=== PATIENT | female | born 1955 | race Caucasian/White ===

== ENCOUNTER 2020-01-24 19:25 | Observation (INO) | payer MEDICARE ==
[2020-01-24] MEDS ORDERED: Sodium Chloride 0.9% 1000 ML 1,000 ML IV STA (19:55)
[2020-01-24] MEDS ORDERED: Hydromorphone 1 mg/ml Ampule IV ONE (19:55)
[2020-01-24] MEDS ORDERED: Zofran 4 MG/2 ML VIAL IV ONE (19:55)
--- NOTE | 2020-01-24 19:55 | ERPHSYRPT ---
- History of Present Illness Time Seen by Provider: 01/24/20 19:51 Source: patient, family Exam Limitations: no limitations Physician History: pt is lupus pt on Tx with fever last week resolving - no respiratory symptoms but now has vomiting - no abd pain - no neuro symptoms Timing/Duration: day(s) Fever Severity: gone Fever Therapy [employer]: none Associated Symptoms: abdominal pain, No cough, No diaphoresis, No shortness of breath Allergies/Adverse Reactions: No Known Drug Allergies Allergy (Verified 01/24/20 20:00) Home Medications: Amlodipine Besylate 2.5 mg PO DAILY 01/24/20 [History] Calcium Carbonate [Calcium] 600 mg PO DAILY 01/24/20 [History] Hydroxychloroquine Sulfate 200 mg PO DAILY 01/24/20 [History] Pravastatin Sodium 10 mg PO DAILY 01/24/20 [History] Sildenafil Citrate [Revatio] 20 mg PO TID 01/24/20 [History] Vitamin E 400 Units [Vitamin E 400 UNIT SOFTGEL] 400 unit PO DAILY [History] mycophenolate mofetiL [Mycophenolate Mofetil] 500 mg PO BID 01/24/20 [History] - Review of Systems Constitutional: Fever, No Chills Eyes: No Symptoms Ears, Nose, & Throat: No Symptoms Respiratory: No Cough, No Dyspnea Cardiac: No Chest Pain, No Edema, No Syncope Abdominal/Gastrointestinal: Nausea, Vomiting, No Abdominal Pain, No Diarrhea Genitourinary Symptoms: No Dysuria Musculoskeletal: No Back Pain, No Neck Pain Skin: No Rash Neurological: No Dizziness, No Focal Weakness, No Sensory Changes Psychological: No Symptoms Endocrine: No Symptoms Hematologic/Lymphatic: No Symptoms Immunological/Allergic: No Symptoms All Other Systems: Reviewed and Negative - Past Medical History Pertinent Past Medical History: Yes - Nursing Vital Signs Nursing Vital Signs: Initial Vital Signs Temperature 98.4 F 01/24/20 19:39 Pulse Rate 82 01/24/20 19:39 Respiratory Rate 16 01/24/20 19:39 Blood Pressure 168/86 01/24/20 19:39 O2 Sat by Pulse Oximetry 100 01/24/20 19:39 Pain Scale Pain Intensity 10 - Physical Exam General Appearance: no apparent distress, alert Eye Exam: PERRL/EOMI ENT Exam: normal ENT inspection, No pharyngeal erythema, No tonsillar exudate Neck Exam: supple, full range of motion, No meningismus Respiratory Exam: normal breath sounds, lungs clear, no respiratory distress Cardiovascular/Chest Exam: normal heart sounds, regular rate/rhythm, No murmur, No edema Gastrointestinal/Abdominal Exam: soft, no distention, guarding, tenderness ( general mid to upper) Pelvic Exam: deferred Rectal Exam: deferred Extremity Exam: non-tender, normal range of motion, normal inspection, normal capillary refill Neurologic Exam: alert, oriented x 3, cooperative, 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, normal mood/affect, sensation nml, No motor deficits Skin Exam: normal color, warm, dry, No rash - Course Nursing assessment & vital signs reviewed: Yes EKG Interpreted by Me: Sinus Rhythm, NORMAL QRS, Non-specific ST Changes - CT Exams Abdomen/Pelvis CT Interpretation: Tele-radiologist Report, DJD (granulomas, PAD, cecal stranding, ), No appendicitis Ordered Tests: Active Orders 24 hr Category Date Time Status EKG-ER Only STAT Care 01/24/20 19:55 Active IV Insertion STAT Care 01/24/20 19:55 Active NPO (ED) STAT Care 01/24/20 19:55 Active ABDOMEN AND PELVIS W/0 CONTRAS [CT] Stat Exams 01/24/20 20:31 Taken AMYLASE Stat Lab 01/24/20 21:11 Completed CBC W DIFF Stat Lab 01/24/20 21:11 Completed CMP Stat Lab 01/24/20 21:11 Completed LIPASE Stat Lab 01/24/20 21:11 Completed Lactic Acid Stat Lab 01/24/20 20:46 Completed PROTIME WITH INR Stat Lab 01/24/20 21:11 Completed TROPONIN Q3H Lab 01/24/20 21:11 Completed TROPONIN Q3H Lab 01/24/20 23:00 Ordered TROPONIN Q3H Lab 01/25/20 02:00 Ordered TROPONIN Q3H Lab 01/25/20 05:00 Ordered TROPONIN Q3H Lab 01/25/20 08:00 Ordered UA W/RFX UR CULTURE Stat Lab 01/24/20 19:56 Uncollected Medication Summary Discontinued Medications Generic Name Dose Route Start Last Admin Trade Name Freq PRN Reason Stop Dose Admin Hydromorphone HCl 0.5 mg 01/24/20 19:55 01/24/20 20:48 Hydromorphone 1 Mg/Ml Ampule IV 01/24/20 19:56 0.5 mg STAT ONE Administration Hydromorphone HCl Confirm 01/24/20 20:20 Hydromorphone 1 Mg/Ml Ampule Administered 01/24/20 20:21 Dose 1 mg .ROUTE .STK-MED ONE Sodium Chloride 1,000 mls @ 999 mls/hr 01/24/20 19:55 01/24/20 20:48 Sodium Chloride 0.9% 1000 Ml IV 01/24/20 20:55 999 mls/hr .Q1H1M STA Administration Sodium Chloride Confirm 01/24/20 20:20 Sodium Chloride 0.9% 1000 Ml Administered 01/24/20 20:21 Dose 1,000 mls @ ud .ROUTE .STK-MED ONE Lidocaine/Prilocaine 2.5 gm 01/24/20 20:08 01/24/20 20:18 Emla Cream 5 Gm TP 01/24/20 20:09 2.5 gm STAT ONE Administration Lidocaine/Prilocaine Confirm 01/24/20 20:09 Emla Cream 5 Gm Administered 01/24/20 20:10 Dose 5 gm TP .STK-MED ONE Ondansetron HCl 4 mg 01/24/20 19:55 01/24/20 20:49 Zofran 4 Mg/2 Ml Vial IV 01/24/20 19:56 4 mg STAT ONE Administration Ondansetron HCl Confirm 01/24/20 20:20 Zofran 4 Mg/2 Ml Vial Administered 01/24/20 20:21 Dose 4 mg .ROUTE .STK-MED ONE Lab/Rad Data: Laboratory Result Diagrams 01/24/20 21:11 01/24/20 21:11 Laboratory Results 01/24/20 01/24/20 01/24/20 Range/Units 21:11 21:11 21:11 WBC (4.0-10.5) K/mm3 RBC (4.1-5.4) M/mm3 Hgb (12.0-16.0) gm/dl Hct (35-47) % MCV (78-100) fl MCH (26-32) pg MCHC (32-36) g/dl RDW (11.5-14.0) % Plt Count (150-450) K/mm3 MPV (7.5-11.0) fl Gran % (36.0-66.0) % Eos # (Auto) (0-0.5) Absolute Lymphs (auto) (1.0-4.6) Absolute Monos (auto) (0.0-1.3) Lymphocytes % (24.0-44.0) % Monocytes % (0.0-12.0) % Eosinophils % (0.00-5.0) % Basophils % (0.0-0.4) % Absolute Granulocytes (1.4-6.9) Basophils # (0-0.4) PT 12.7 H (9.95-12.35) SECONDS INR 1.12 (0.8-3.0) Sodium 138 (137-145) mmol/L Potassium 3.8 (3.5-5.1) mmol/L Chloride 96 L (98-107) mmol/L Carbon Dioxide 36 H (22-30) mmol/L Anion Gap 9.7 (5-15) MEQ/L BUN 11 (7-17) mg/dL Creatinine 0.63 (0.52-1.04) mg/dL Estimated GFR > 60.0 ML/MIN Glucose 109 H (74-106) mg/dL Lactic Acid (0.4-2.0) Calcium 10.0 (8.4-10.2) mg/dL Total Bilirubin 0.60 (0.2-1.3) mg/dL AST 75 H (14-36) U/L ALT 43 H (0-35) U/L Alkaline Phosphatase 90 (38-126) U/L Troponin I < 0.012 (0.000-0.034) ng/mL Serum Total Protein 9.3 H (6.3-8.2) g/dL Albumin 4.2 (3.5-5.0) g/dL Amylase 74 (30-110) U/L Lipase 266 (23-300) U/L Influenza Type A Ag (NEGATIVE) Influenza Type B Ag (NEGATIVE) RSV (PCR) (Negative) 01/24/20 01/24/20 01/24/20 Range/Units 21:11 20:54 20:46 WBC 2.4 L (4.0-10.5) K/mm3 RBC 4.27 (4.1-5.4) M/mm3 Hgb 12.1 (12.0-16.0) gm/dl Hct 38.7 (35-47) % MCV 90.6 (78-100) fl MCH 28.3 (26-32) pg MCHC 31.3 L (32-36) g/dl RDW 14.0 (11.5-14.0) % Plt Count 124 L (150-450) K/mm3 MPV 12.0 H (7.5-11.0) fl Gran % 61.9 (36.0-66.0) % Eos # (Auto) 0.05 (0-0.5) Absolute Lymphs (auto) 0.45 L (1.0-4.6) Absolute Monos (auto) 0.40 (0.0-1.3) Lymphocytes % 19.1 L (24.0-44.0) % Monocytes % 16.9 H (0.0-12.0) % Eosinophils % 2.1 (0.00-5.0) % Basophils % 0.0 (0.0-0.4) % Absolute Granulocytes 1.46 (1.4-6.9) Basophils # 0 (0-0.4) PT (9.95-12.35) SECONDS INR (0.8-3.0) Sodium (137-145) mmol/L Potassium (3.5-5.1) mmol/L Chloride (98-107) mmol/L Carbon Dioxide (22-30) mmol/L Anion Gap (5-15) MEQ/L BUN (7-17) mg/dL Creatinine (0.52-1.04) mg/dL Estimated GFR ML/MIN Glucose (74-106) mg/dL Lactic Acid 1.0 (0.4-2.0) Calcium (8.4-10.2) mg/dL Total Bilirubin (0.2-1.3) mg/dL AST (14-36) U/L ALT (0-35) U/L Alkaline Phosphatase (38-126) U/L Troponin I (0.000-0.034) ng/mL Serum Total Protein (6.3-8.2) g/dL Albumin (3.5-5.0) g/dL Amylase (30-110) U/L Lipase (23-300) U/L Influenza Type A Ag NEGATIVE (NEGATIVE) Influenza Type B Ag NEGATIVE (NEGATIVE) RSV (PCR) NEGATIVE (Negative) - Progress Progress: improved, re-examined Progress Note: 01/24/20 20:16 discussed fever but lack of resp symptoms with pt making COVID 19 less likely but that in her immune state any resp symptom or cough should prompt reconsideration of testing and she is aware , agrees to let of know if any symptoms and to reconsider testing at such time if these occur. 01/24/20 22:58 discussed with pt , family and Dr. Patel and all agree best to place in on obs and rehydrate Discussed with : Juli Will see patient in: hospital (observation) Counseled pt/family regarding: lab results, diagnosis, need for follow-up, rad results - Departure Departure Disposition: Observation Clinical Impression: Intractable vomiting with nausea, Lupus (systemic lupus erythematosus) Condition: Good Critical Care Time: No Referrals: NOY PATEL MD [Primary Care Provider] -
[2020-01-24] MEDS ORDERED: EMLA Cream 5 GM TP ONE ×2 (20:08→20:09)
[2020-01-24] MEDS ORDERED: Hydromorphone 1 mg/ml Ampule ONE (20:20)
[2020-01-24] MEDS ORDERED: Sodium Chloride 0.9% 1000 ML 1,000 ML ONE (20:20)
[2020-01-24] MEDS ORDERED: Zofran 4 MG/2 ML VIAL ONE (20:20)
[2020-01-24 21:16] LABS: Absolute Neutrophil Ct (ANC) 1.46 (1.4-6.9); Basophil (Absolute #) 0 (0-0.4); Eosinophil % 2.1 % (0.00-5.0); Eosinophil (Absolute #) 0.05 (0-0.5); Hematocrit 38.7 % (35-47); Hemoglobin 12.1 gm/dl (12.0-16.0); Lymphocyte (Absolute #) 0.45 (1.0-4.6); Lymphocytes % 19.1 % (24.0-44.0); Mean Cell Volume 90.6 fl (78-100); Mean Corpuscular Hemoglobin 28.3 pg (26-32); Mean Corpuscular Hgb Concent. 31.3 g/dl (32-36); Monocytes % 16.9 % (0.0-12.0); Neutrophil % 61.9 % (36.0-66.0); Platelet Count 124 K/mm3 (150-450); Red Blood Count 4.27 M/mm3 (4.1-5.4); White Blood Count 2.4 K/mm3 (4.0-10.5)
[2020-01-24 21:27] LABS: INR 1.12 (0.8-3.0); PROTIME 12.7 SECONDS (9.95-12.35)
[2020-01-24 21:30] LABS: INFLUENZA A NEGATIVE (NEGATIVE); INFLUENZA B NEGATIVE (NEGATIVE); RESPIRATORY SYNCTIAL VIRUS NEGATIVE (Negative)
[2020-01-24 21:31] LABS: ALBUMIN 4.2 g/dL (3.5-5.0); ALKALINE PHOSPHATASE 90 U/L (38-126); AMYLASE 74 U/L (30-110); ANION GAP 9.7 MEQ/L (5-15); BLOOD UREA NITROGEN 11 mg/dL (7-17); CHLORIDE 96 mmol/L (98-107); Carbon Dioxide 36 mmol/L (22-30); Creatinine 1 0.63 mg/dL (0.52-1.04); Glucose 109 mg/dL (74-106); LIPASE 266 U/L (23-300); Potassium 3.8 mmol/L (3.5-5.1); SGOT/AST 75 U/L (14-36); SGPT/ALT 43 U/L (0-35); SODIUM 138 mmol/L (137-145); Total Protein 9.3 g/dL (6.3-8.2)
[2020-01-24 23:37] LABS: Appearance CLEAR (CLEAR); Bilirubin NEGATIVE (NEGATIVE); Blood NEGATIVE Ery/ul (0-5); Glucose NEGATIVE (NEGATIVE); Ketones SMALL (NEGATIVE); Leukocyte Esterase NEGATIVE (NEGATIVE); Mucus SLIGHT /HPF (NEGATIVE); Nitrite NEGATIVE (NEGATIVE); Protein,Urine Dip NEGATIVE (Negative); RBC 0-2 /HPF (0-2); Specific Gravity 1.009 (1.005-1.025); Urobilinogen NEGATIVE mg/dL (0-1); WBC 0-2 /HPF (0-5)
[2020-01-25] MEDS ORDERED: Zofran 4 MG/2 ML VIAL IV PRN (00:56)
[2020-01-25] MEDS ORDERED: HUMALOG SQ PRN (00:56)
[2020-01-25] MEDS ORDERED: TYLENOL 325 MG PO PRN (00:56)
[2020-01-25] MEDS ORDERED: Phenergan 25 MG INJ IM PRN (00:56)
[2020-01-25] MEDS: Sodium Chloride 0.9% 1000 ML 1,000 ML IV SCH ×4 (01:16→21:31)
[2020-01-25 02:21] LABS: Slide Review 1 YES
[2020-01-25] MEDS: DILAUDID 2 MG INJECTION IV PRN ×3 (03:06→21:32)
[2020-01-25 05:09] LABS: Hematocrit 34.3 % (35-47); Hemoglobin 10.5 gm/dl (12.0-16.0); Mean Corpuscular Hemoglobin 28.2 pg (26-32); Mean Corpuscular Hgb Concent. 30.6 g/dl (32-36); Mean Platelet Volume 11.4 fl (7.5-11.0); Platelet Count 99 K/mm3 (150-450); Red Blood Count 3.73 M/mm3 (4.1-5.4); Red Cell Distribution Width 13.9 % (11.5-14.0)
[2020-01-25 05:20] LABS: White Blood Count 1.6 K/mm3 (4.0-10.5)
[2020-01-25 05:21] LABS: ALBUMIN 3.5 g/dL (3.5-5.0); ALKALINE PHOSPHATASE 73 U/L (38-126); ANION GAP 7.5 MEQ/L (5-15); BLOOD UREA NITROGEN 9 mg/dL (7-17); CHLORIDE 102 mmol/L (98-107); Calcium 9.2 mg/dL (8.4-10.2); Carbon Dioxide 32 mmol/L (22-30); Creatinine 1 0.64 mg/dL (0.52-1.04); Glucose 91 mg/dL (74-106); Potassium 3.9 mmol/L (3.5-5.1); SGOT/AST 69 U/L (14-36); SGPT/ALT 40 U/L (0-35); SODIUM 138 mmol/L (137-145); Total Protein 7.9 g/dL (6.3-8.2)
--- NOTE | 2020-01-25 08:19 | XRAY ---
Indication: Abdomen pain, nausea, and vomiting. History of lupus. Multiple contiguous axial images obtained through the abdomen and pelvis without contrast as ordered. Comparison: CT abdomen September 14, 2017. Lung bases demonstrates atelectasis/scarring. No infiltrate or effusion. Heart is not enlarged. Noncontrasted stomach and bowel loops appear nonobstructed. There is mild diffuse scattered colonic debris throughout. Previous reported appendectomy, hysterectomy, and cholecystectomy. Liver again appears small with nodular margins favoring cirrhosis. No free fluid/air. Stable 15 cm splenomegaly and hepatic/splenic calcified granulomas. Remaining liver, pancreas, spleen, adrenal glands, kidneys, ureters, and bladder appear unremarkable for noncontrast exam. Stable moderate aortoiliac calcifications without AAA. Osseous structures again demonstrates mild degenerative changes throughout the spine and both hips. No ventral or inguinal hernias. Impression: 1. Mild diffuse fecal stasis without obstruction. 2. Stable small liver with nodular margins again favoring cirrhosis. No ascites. 3. Stable hepatomegaly, chronic bony findings, and evidence for old granulomatous disease. 3. Remaining CT abdomen/pelvis without contrast exam is negative. Comment: Preliminary interpretation was made by [facility]. No critical discrepancy.
[2020-01-25 08:42] LABS: Eosinophil 1 % (0.00-3.0); Lymphocytes 32 % (24-44); Monocyte 12 % (0.0-12.0); Neutrophils 55 % (36.0-66.0); Platelet Estimate DECREASED (NORMAL); Total Cells Counted 100
--- NOTE | 2020-01-25 08:53 | PCM.HP ---
History of Present Illness - Chief Complaint Chief Complaint: intractable vomiting/weakness for 2-3 days History of Present Illness: is a 64 year old female to the emergency room With complaining of intractable vomiting for last 2-3 days associated with fever. Patient has a history of lupus. - Review of Systems Constitutional: Fever, Chills Eyes: No Symptoms Ears, Nose, & Throat: No Symptoms Respiratory: No Cough, No Short Of Breath Cardiac: No Chest Pain, No Edema, No Syncope Abdominal/Gastrointestinal: Nausea, Vomiting, No Abdominal Pain, No Diarrhea Genitourinary Symptoms: No Dysuria Musculoskeletal: No Back Pain, No Neck Pain Skin: No Rash Neurological: No Dizziness, No Focal Weakness, No Sensory Changes Psychological: No Symptoms Endocrine: No Symptoms Hematologic/Lymphatic: No Symptoms Immunological/Allergic: No Symptoms Medications & Allergies Home Medications: Home Medication List Amlodipine Besylate 2.5 mg PO DAILY 01/24/20 [History Confirmed 01/24/20] Calcium Carbonate [Calcium] 600 mg PO DAILY 01/24/20 [History Confirmed 01/24/20 ] Hydroxychloroquine Sulfate 200 mg PO DAILY 01/24/20 [History Confirmed 01/24/20] Pravastatin Sodium 10 mg PO DAILY 01/24/20 [History Confirmed 01/24/20] Sildenafil Citrate [Revatio] 20 mg PO TID 01/24/20 [History Confirmed 01/24/20] Vitamin E 400 Units [Vitamin E 400 UNIT SOFTGEL] 400 unit PO DAILY [History Confirmed 01/24/20] mycophenolate mofetiL [Mycophenolate Mofetil] 500 mg PO BID 01/24/20 [History Confirmed 01/24/20] Cholecalciferol (Vitamin D3) [Vitamin D3] 50 mcg PO DAILY 01/25/20 [History Confirmed 01/25/20] Mecobalamin [B12 Active] 1,000 mcg PO DAILY 01/25/20 [History Confirmed 01/25/20 ] Milk Thistle 175 mg PO DAILY 01/25/20 [History Confirmed 01/25/20] Allergies/Adverse Reactions: Allergies Allergy/AdvReac Type Severity Reaction Status Date / Time No Known Drug Allergies Allergy Verified 01/24/20 20:00 - Past Medical History Past Medical History: Yes Neurological History: No Pertinent History ENT History: No Pertinent History Cardiac History: Other Respiratory History: No Pertinent History Endocrine Medical History: No Pertinent History, Liver Disease Musculoskelatal History: Rheumatoid Arthritis GI Medical History: Other History: No Pertinent History Pyscho-Social History: No Pertinent History Reproductive Disorders: Uterine Cancer Comment: lupus, lupus cerebritis, reynauds, scleroderma, pulm htn, liver disease with cirrhosis, hep c- treated. pt states blockages in esophagus- states she is going on february 17 to have esophatgus stretched again. hx nonhodgkins lymphoma, ewings sarcoma, cervical ca, stomach ca per pt - Female History Are you now?: No - Past Surgical History Past Surgical History: Yes Neuro Surgical History: No Pertinent History Cardiac History: No Pertinent History Respiratory Surgery: No Pertinent History GI Surgical History: Cholecystectomy Genitourinary Surgical Hx: No Pertinent History Musculskeletal Surgical Hx: Joint Replacement Female Surgical History: Hysterectomy Other Surgical History: rt knee replacement, finger amp rt hand x2, port placement - Social History Smoking Status: Former smoker Exposure to second hand smoke: No Alcohol: None Drug Use: none - Physical Exam Vital Signs: Vital Signs - 24 hr Temp Pulse Resp BP Pulse Ox 01/25/20 07:33 97.9 F 67 18 142/70 98 01/25/20 06:40 100 01/25/20 03:35 97.7 F 69 17 155/70 99 01/25/20 01:14 97.9 F 53 L 18 150/66 98 01/25/20 00:50 64 18 147/98 99 01/25/20 00:02 55 L 18 154/98 99 01/24/20 23:08 76 18 171/83 99 01/24/20 22:02 67 15 162/92 96 01/24/20 21:12 62 10 L 148/68 93 L 01/24/20 20:48 63 147/77 100 01/24/20 19:39 98.4 F 82 16 168/86 100 General Appearance: no apparent distress, alert Neurologic Exam: alert, oriented x 3, cooperative, normal mood/affect, nml cerebellar function, nml station & gait, sensation nml, No motor deficits Eye Exam: PERRL/EOMI, eyes nml inspection Ears, Nose, Throat Exam: normal ENT inspection, TMs normal, pharynx normal, moist mucous membranes Neck Exam: normal inspection, non-tender, supple, full range of motion Respiratory Exam: normal breath sounds, lungs clear, No respiratory distress Cardiovascular Exam: regular rate/rhythm, normal heart sounds, normal peripheral pulses Gastrointestinal/Abdomen Exam: soft, normal bowel sounds, No tenderness, No mass Back Exam: normal inspection, normal range of motion, No CVA tenderness, No vertebral tenderness Extremity Exam: normal inspection, normal range of motion, pelvis stable Skin Exam: normal color, warm, dry, No rash Lymphatic Exam: No adenopathy Results - Labs Lab/Micro Results: Lab Results-Last 24 Hours 01/24/20 01/24/20 01/24/20 Range/Units 20:46 20:54 21:11 WBC 2.4 L (4.0-10.5) K/mm3 RBC 4.27 (4.1-5.4) M/mm3 Hgb 12.1 (12.0-16.0) gm/dl Hct 38.7 (35-47) % MCV 90.6 (78-100) fl MCH 28.3 (26-32) pg MCHC 31.3 L (32-36) g/dl RDW 14.0 (11.5-14.0) % Plt Count 124 L (150-450) K/mm3 MPV 12.0 H (7.5-11.0) fl Gran % 61.9 (36.0-66.0) % Eos # (Auto) 0.05 (0-0.5) Absolute Lymphs (auto) 0.45 L (1.0-4.6) Absolute Monos (auto) 0.40 (0.0-1.3) Lymphocytes % 19.1 L (24.0-44.0) % Monocytes % 16.9 H (0.0-12.0) % Eosinophils % 2.1 (0.00-5.0) % Basophils % 0.0 (0.0-0.4) % Absolute Granulocytes 1.46 (1.4-6.9) Segmented Neutrophils (36.0-66.0) % Lymphocytes (Manual) (24-44) % Monocytes (Manual) (0.0-12.0) % Eosinophils (Manual) (0.00-3.0) % Basophils # 0 (0-0.4) Platelet Estimate (NORMAL) RBC Morphology PT (9.95-12.35) SECONDS INR (0.8-3.0) Sodium (137-145) mmol/L Potassium (3.5-5.1) mmol/L Chloride (98-107) mmol/L Carbon Dioxide (22-30) mmol/L Anion Gap (5-15) MEQ/L BUN (7-17) mg/dL Creatinine (0.52-1.04) mg/dL Estimated GFR ML/MIN Glucose (74-106) mg/dL Lactic Acid 1.0 (0.4-2.0) Calcium (8.4-10.2) mg/dL Total Bilirubin (0.2-1.3) mg/dL AST (14-36) U/L ALT (0-35) U/L Alkaline Phosphatase (38-126) U/L Troponin I (0.000-0.034) ng/mL Serum Total Protein (6.3-8.2) g/dL Albumin (3.5-5.0) g/dL Amylase (30-110) U/L Lipase (23-300) U/L Urine Color (YELLOW) Urine Appearance (CLEAR) Urine pH (5-6) Ur Specific Robins (1.005-1.025) Urine Protein (Negative) Urine Ketones (NEGATIVE) Urine Blood (0-5) Bj/ul Urine Nitrite (NEGATIVE) Urine Bilirubin (NEGATIVE) Urine Urobilinogen (0-1) mg/dL Ur Leukocyte Esterase (NEGATIVE) Urine WBC (Auto) (0-5) /HPF Urine RBC (Auto) (0-2) /HPF U Epithel Cells (Auto) (FEW) /HPF Urine Bacteria (Auto) (NEGATIVE) /HPF Urine Mucus (Auto) (NEGATIVE) /HPF Urine Culture Reflexed (NO) Urine Glucose (NEGATIVE) mg/dL Influenza Type A Ag NEGATIVE (NEGATIVE) Influenza Type B Ag NEGATIVE (NEGATIVE) RSV (PCR) NEGATIVE (Negative) Slides for Path Review YES 01/24/20 01/24/20 01/24/20 Range/Units 21:11 21:11 21:11 WBC (4.0-10.5) K/mm3 RBC (4.1-5.4) M/mm3 Hgb (12.0-16.0) gm/dl Hct (35-47) % MCV (78-100) fl MCH (26-32) pg MCHC (32-36) g/dl RDW (11.5-14.0) % Plt Count (150-450) K/mm3 MPV (7.5-11.0) fl Gran % (36.0-66.0) % Eos # (Auto) (0-0.5) Absolute Lymphs (auto) (1.0-4.6) Absolute Monos (auto) (0.0-1.3) Lymphocytes % (24.0-44.0) % Monocytes % (0.0-12.0) % Eosinophils % (0.00-5.0) % Basophils % (0.0-0.4) % Absolute Granulocytes (1.4-6.9) Segmented Neutrophils (36.0-66.0) % Lymphocytes (Manual) (24-44) % Monocytes (Manual) (0.0-12.0) % Eosinophils (Manual) (0.00-3.0) % Basophils # (0-0.4) Platelet Estimate (NORMAL) RBC Morphology PT 12.7 H (9.95-12.35) SECONDS INR 1.12 (0.8-3.0) Sodium 138 (137-145) mmol/L Potassium 3.8 (3.5-5.1) mmol/L Chloride 96 L (98-107) mmol/L Carbon Dioxide 36 H (22-30) mmol/L Anion Gap 9.7 (5-15) MEQ/L BUN 11 (7-17) mg/dL Creatinine 0.63 (0.52-1.04) mg/dL Estimated GFR > 60.0 ML/MIN Glucose 109 H (74-106) mg/dL Lactic Acid (0.4-2.0) Calcium 10.0 (8.4-10.2) mg/dL Total Bilirubin 0.60 (0.2-1.3) mg/dL AST 75 H (14-36) U/L ALT 43 H (0-35) U/L Alkaline Phosphatase 90 (38-126) U/L Troponin I < 0.012 (0.000-0.034) ng/mL Serum Total Protein 9.3 H (6.3-8.2) g/dL Albumin 4.2 (3.5-5.0) g/dL Amylase 74 (30-110) U/L Lipase 266 (23-300) U/L Urine Color (YELLOW) Urine Appearance (CLEAR) Urine pH (5-6) Ur Specific Rob[place] (1.005-1.025) Urine Protein (Negative) Urine Ketones (NEGATIVE) Urine Blood (0-5) Bj/ul Urine Nitrite (NEGATIVE) Urine Bilirubin (NEGATIVE) Urine Urobilinogen (0-1) mg/dL Ur Leukocyte Esterase (NEGATIVE) Urine WBC (Auto) (0-5) /HPF Urine RBC (Auto) (0-2) /HPF U Epithel Cells (Auto) (FEW) /HPF Urine Bacteria (Auto) (NEGATIVE) /HPF Urine Mucus (Auto) (NEGATIVE) /HPF Urine Culture Reflexed (NO) Urine Glucose (NEGATIVE) mg/dL Influenza Type A Ag (NEGATIVE) Influenza Type B Ag (NEGATIVE) RSV (PCR) (Negative) Slides for Path Review 01/24/20 01/24/20 01/25/20 Range/Units 23:31 23:34 02:08 WBC (4.0-10.5) K/mm3 RBC (4.1-5.4) M/mm3 Hgb (12.0-16.0) gm/dl Hct (35-47) % MCV (78-100) fl MCH (26-32) pg MCHC (32-36) g/dl RDW (11.5-14.0) % Plt Count (150-450) K/mm3 MPV (7.5-11.0) fl Gran % (36.0-66.0) % Eos # (Auto) (0-0.5) Absolute Lymphs (auto) (1.0-4.6) Absolute Monos (auto) (0.0-1.3) Lymphocytes % (24.0-44.0) % Monocytes % (0.0-12.0) % Eosinophils % (0.00-5.0) % Basophils % (0.0-0.4) % Absolute Granulocytes (1.4-6.9) Segmented Neutrophils (36.0-66.0) % Lymphocytes (Manual) (24-44) % Monocytes (Manual) (0.0-12.0) % Eosinophils (Manual) (0.00-3.0) % Basophils # (0-0.4) Platelet Estimate (NORMAL) RBC Morphology PT (9.95-12.35) SECONDS INR (0.8-3.0) Sodium (137-145) mmol/L Potassium (3.5-5.1) mmol/L Chloride (98-107) mmol/L Carbon Dioxide (22-30) mmol/L Anion Gap (5-15) MEQ/L BUN (7-17) mg/dL Creatinine (0.52-1.04) mg/dL Estimated GFR ML/MIN Glucose (74-106) mg/dL Lactic Acid (0.4-2.0) Calcium (8.4-10.2) mg/dL Total Bilirubin (0.2-1.3) mg/dL AST (14-36) U/L ALT (0-35) U/L Alkaline Phosphatase (38-126) U/L Troponin I < 0.012 < 0.012 (0.000-0.034) ng/mL Serum Total Protein (6.3-8.2) g/dL Albumin (3.5-5.0) g/dL Amylase (30-110) U/L Lipase (23-300) U/L Urine Color YELLOW (YELLOW) Urine Appearance CLEAR (CLEAR) Urine pH 7.0 (5-6) Ur Specific [place] 1.009 (1.005-1.025) Urine Protein NEGATIVE (Negative) Urine Ketones SMALL (NEGATIVE) Urine Blood NEGATIVE (0-5) Bj/ul Urine Nitrite NEGATIVE (NEGATIVE) Urine Bilirubin NEGATIVE (NEGATIVE) Urine Urobilinogen NEGATIVE (0-1) mg/dL Ur Leukocyte Esterase NEGATIVE (NEGATIVE) Urine WBC (Auto) 0-2 (0-5) /HPF Urine RBC (Auto) 0-2 (0-2) /HPF U Epithel Cells (Auto) NONE (FEW) /HPF Urine Bacteria (Auto) NONE (NEGATIVE) /HPF Urine Mucus (Auto) SLIGHT (NEGATIVE) /HPF Urine Culture Reflexed NO (NO) Urine Glucose NEGATIVE (NEGATIVE) mg/dL Influenza Type A Ag (NEGATIVE) Influenza Type B Ag (NEGATIVE) RSV (PCR) (Negative) Slides for Path Review 01/25/20 01/25/20 01/25/20 Range/Units 05:06 05:06 05:06 WBC 1.6 L* (4.0-10.5) K/mm3 RBC 3.73 L (4.1-5.4) M/mm3 Hgb 10.5 L (12.0-16.0) gm/dl Hct 34.3 L (35-47) % MCV 92.0 (78-100) fl MCH 28.2 (26-32) pg MCHC 30.6 L (32-36) g/dl RDW 13.9 (11.5-14.0) % Plt Count 99 L (150-450) K/mm3 MPV 11.4 H (7.5-11.0) fl Gran % (36.0-66.0) % Eos # (Auto) (0-0.5) Absolute Lymphs (auto) (1.0-4.6) Absolute Monos (auto) (0.0-1.3) Lymphocytes % (24.0-44.0) % Monocytes % (0.0-12.0) % Eosinophils % (0.00-5.0) % Basophils % (0.0-0.4) % Absolute Granulocytes (1.4-6.9) Segmented Neutrophils 55 (36.0-66.0) % Lymphocytes (Manual) 32 (24-44) % Monocytes (Manual) 12 (0.0-12.0) % Eosinophils (Manual) 1 (0.00-3.0) % Basophils # (0-0.4) Platelet Estimate DECREASED (NORMAL) RBC Morphology NORMAL PT (9.95-12.35) SECONDS INR (0.8-3.0) Sodium 138 (137-145) mmol/L Potassium 3.9 (3.5-5.1) mmol/L Chloride 102 (98-107) mmol/L Carbon Dioxide 32 H (22-30) mmol/L Anion Gap 7.5 (5-15) MEQ/L BUN 9 (7-17) mg/dL Creatinine 0.64 (0.52-1.04) mg/dL Estimated GFR > 60.0 ML/MIN Glucose 91 (74-106) mg/dL Lactic Acid (0.4-2.0) Calcium 9.2 (8.4-10.2) mg/dL Total Bilirubin 0.40 (0.2-1.3) mg/dL AST 69 H (14-36) U/L ALT 40 H (0-35) U/L Alkaline Phosphatase 73 (38-126) U/L Troponin I < 0.012 (0.000-0.034) ng/mL Serum Total Protein 7.9 (6.3-8.2) g/dL Albumin 3.5 (3.5-5.0) g/dL Amylase (30-110) U/L Lipase (23-300) U/L Urine Color (YELLOW) Urine Appearance (CLEAR) Urine pH (5-6) Ur Specific [place] (1.005-1.025) Urine Protein (Negative) Urine Ketones (NEGATIVE) Urine Blood (0-5) Bj/ul Urine Nitrite (NEGATIVE) Urine Bilirubin (NEGATIVE) Urine Urobilinogen (0-1) mg/dL Ur Leukocyte Esterase (NEGATIVE) Urine WBC (Auto) (0-5) /HPF Urine RBC (Auto) (0-2) /HPF U Epithel Cells (Auto) (FEW) /HPF Urine Bacteria (Auto) (NEGATIVE) /HPF Urine Mucus (Auto) (NEGATIVE) /HPF Urine Culture Reflexed (NO) Urine Glucose (NEGATIVE) mg/dL Influenza Type A Ag (NEGATIVE) Influenza Type B Ag (NEGATIVE) RSV (PCR) (Negative) Slides for Path Review 01/25/20 Range/Units 08:05 WBC (4.0-10.5) K/mm3 RBC (4.1-5.4) M/mm3 Hgb (12.0-16.0) gm/dl Hct (35-47) % MCV (78-100) fl MCH (26-32) pg MCHC (32-36) g/dl RDW (11.5-14.0) % Plt Count (150-450) K/mm3 MPV (7.5-11.0) fl Gran % (36.0-66.0) % Eos # (Auto) (0-0.5) Absolute Lymphs (auto) (1.0-4.6) Absolute Monos (auto) (0.0-1.3) Lymphocytes % (24.0-44.0) % Monocytes % (0.0-12.0) % Eosinophils % (0.00-5.0) % Basophils % (0.0-0.4) % Absolute Granulocytes (1.4-6.9) Segmented Neutrophils (36.0-66.0) % Lymphocytes (Manual) (24-44) % Monocytes (Manual) (0.0-12.0) % Eosinophils (Manual) (0.00-3.0) % Basophils # (0-0.4) Platelet Estimate (NORMAL) RBC Morphology PT (9.95-12.35) SECONDS INR (0.8-3.0) Sodium (137-145) mmol/L Potassium (3.5-5.1) mmol/L Chloride (98-107) mmol/L Carbon Dioxide (22-30) mmol/L Anion Gap (5-15) MEQ/L BUN (7-17) mg/dL Creatinine (0.52-1.04) mg/dL Estimated GFR ML/MIN Glucose (74-106) mg/dL Lactic Acid (0.4-2.0) Calcium (8.4-10.2) mg/dL Total Bilirubin (0.2-1.3) mg/dL AST (14-36) U/L ALT (0-35) U/L Alkaline Phosphatase (38-126) U/L Troponin I < 0.012 (0.000-0.034) ng/mL Serum Total Protein (6.3-8.2) g/dL Albumin (3.5-5.0) g/dL Amylase (30-110) U/L Lipase (23-300) U/L Urine Color (YELLOW) Urine Appearance (CLEAR) Urine pH (5-6) Ur Specific [place] (1.005-1.025) Urine Protein (Negative) Urine Ketones (NEGATIVE) Urine Blood (0-5) Bj/ul Urine Nitrite (NEGATIVE) Urine Bilirubin (NEGATIVE) Urine Urobilinogen (0-1) mg/dL Ur Leukocyte Esterase (NEGATIVE) Urine WBC (Auto) (0-5) /HPF Urine RBC (Auto) (0-2) /HPF U Epithel Cells (Auto) (FEW) /HPF Urine Bacteria (Auto) (NEGATIVE) /HPF Urine Mucus (Auto) (NEGATIVE) /HPF Urine Culture Reflexed (NO) Urine Glucose (NEGATIVE) mg/dL Influenza Type A Ag (NEGATIVE) Influenza Type B Ag (NEGATIVE) RSV (PCR) (Negative) Slides for Path Review - Radiology Impressions Radiology Exams & Impressions: Radiology Procedures Category Date Time Status ABDOMEN AND PELVIS W/0 CONTRAS [CT] Stat Exams 01/24/20 20:31 Completed - Other Procedures and Tests Respiratory Therapy 01/25/20 00:56 Oxygen Nasal Cannula 3 lpm Assessment/Plan (1) Intractable vomiting with nausea Current Visit: Yes Status: Acute Assessment & Plan: Chief Complaint Diagnosis intractable vomiting/weakness Allergies Allergy/AdvReac Type Severity Reaction Status Date / Time No Known Drug Allergies Allergy Verified 01/24/20 20:00 Vital Signs (Last 24 hours) Temp Pulse Resp BP Pulse Ox 01/25/20 07:33 97.9 F 67 18 142/70 98 01/25/20 06:40 100 01/25/20 03:35 97.7 F 69 17 155/70 99 01/25/20 01:14 97.9 F 53 L 18 150/66 98 01/25/20 00:50 64 18 147/98 99 01/25/20 00:02 55 L 18 154/98 99 01/24/20 23:08 76 18 171/83 99 01/24/20 22:02 67 15 162/92 96 01/24/20 21:12 62 10 L 148/68 93 L 01/24/20 20:48 63 147/77 100 01/24/20 19:39 98.4 F 82 16 168/86 100 Home Medications Medication Instructions Recorded Confirmed Last Taken Type Amlodipine Besylate 2.5 mg PO DAILY 01/24/20 01/24/20 Unknown History Calcium Carbonate [Calcium] 600 mg PO DAILY 01/24/20 01/24/20 Unknown History Hydroxychloroquine Sulfate 200 mg PO DAILY 01/24/20 01/24/20 Unknown History Pravastatin Sodium 10 mg PO DAILY 01/24/20 01/24/20 Unknown History Sildenafil Citrate [Revatio] 20 mg PO TID 01/24/20 01/24/20 Unknown History Vitamin E 400 Units [Vitamin E 400 unit PO DAILY 01/24/20 01/24/20 Unknown History 400 UNIT SOFTGEL] mycophenolate mofetiL 500 mg PO BID 01/24/20 01/24/20 Unknown History [Mycophenolate Mofetil] Cholecalciferol (Vitamin D3) 50 mcg PO DAILY 01/25/20 01/25/20 Unknown History [Vitamin D3] Mecobalamin [B12 Active] 1,000 mcg PO DAILY 01/25/20 01/25/20 Unknown History Milk Thistle 175 mg PO DAILY 01/25/20 01/25/20 Unknown History Current Medications Generic Name Dose Route Start Last Admin Trade Name Freq PRN Reason Stop Dose Admin Acetaminophen 650 mg 01/25/20 00:56 Tylenol 325 Mg PO 02/24/20 00:55 Q4H PRN PRN PAIN AND/OR FEVER Famotidine 20 mg 01/25/20 10:00 Pepcid 20 Mg Vial IV 02/24/20 09:59 Q12HT SHEILA Hydromorphone HCl 0.5 mg 01/25/20 00:56 01/25/20 03:06 Dilaudid 2 Mg Injection IV 01/30/20 00:55 0.5 mg Q4H PRN PRN Administration PAIN Sodium Chloride 1,000 mls @ 150 mls/hr 01/25/20 00:56 01/25/20 08:10 Sodium Chloride 0.9% 1000 Ml IV 02/24/20 00:55 150 mls/hr .Q6H40M SHEILA Administration Insulin Human Lispro 0 unit 01/25/20 00:56 Humalog SQ 02/24/20 00:55 UD PRN HYPERGLYCEMIA Ondansetron HCl 4 mg 01/25/20 00:56 Zofran 4 Mg/2 Ml Vial IV 02/24/20 00:55 Q6H PRN PRN NAUSEA/VOMITING Promethazine HCl 25 mg 01/25/20 00:56 Phenergan 25 Mg Inj IM 02/24/20 00:55 Q6H PRN PRN NAUSEA/VOMITING Discontinued Medications Generic Name Dose Route Start Last Admin Trade Name Stevie PRN Reason Stop Dose Admin Hydromorphone HCl 0.5 mg 01/24/20 19:55 01/24/20 20:48 Hydromorphone 1 Mg/Ml Ampule IV 01/24/20 19:56 0.5 mg STAT ONE Administration Hydromorphone HCl Confirm 01/24/20 20:20 Hydromorphone 1 Mg/Ml Ampule Administered 01/24/20 20:21 Dose 1 mg .ROUTE .STK-MED ONE Sodium Chloride 1,000 mls @ 999 mls/hr 01/24/20 19:55 01/24/20 23:00 Sodium Chloride 0.9% 1000 Ml IV 01/24/20 20:55 Infused .Q1H1M STA Infusion Sodium Chloride Confirm 01/24/20 20:20 Sodium Chloride 0.9% 1000 Ml Administered 01/24/20 20:21 Dose 1,000 mls @ ud .ROUTE .STK-MED ONE Lidocaine/Prilocaine 2.5 gm 01/24/20 20:08 01/24/20 20:18 Emla Cream 5 Gm TP 01/24/20 20:09 2.5 gm STAT ONE Administration Lidocaine/Prilocaine Confirm 01/24/20 20:09 Emla Cream 5 Gm Administered 01/24/20 20:10 Dose 5 gm TP .STK-MED ONE Ondansetron HCl 4 mg 01/24/20 19:55 01/24/20 20:49 Zofran 4 Mg/2 Ml Vial IV 01/24/20 19:56 4 mg STAT ONE Administration Ondansetron HCl Confirm 01/24/20 20:20 Zofran 4 Mg/2 Ml Vial Administered 01/24/20 20:21 Dose 4 mg .ROUTE .STK-MED ONE Intake & Output (Last 24 hours) 01/22/20 01/23/20 01/24/20 01/25/20 11:59 11:59 11:59 11:59 Intake Total 344 Output Total 100 Balance 244 Weight 57.2 kg Laboratory Results (Last 24 hours) 01/25/20 01/25/20 01/25/20 08:05 05:06 05:06 WBC 1.6 L* RBC 3.73 L Hgb 10.5 L Hct 34.3 L MCV 92.0 MCH 28.2 MCHC 30.6 L RDW 13.9 Plt Count 99 L MPV 11.4 H Gran % Eos # (Auto) Absolute Lymphs (auto) Absolute Monos (auto) Lymphocytes % Monocytes % Eosinophils % Basophils % Absolute Granulocytes Segmented Neutrophils 55 Lymphocytes (Manual) 32 Monocytes (Manual) 12 Eosinophils (Manual) 1 Basophils # Platelet Estimate DECREASED RBC Morphology NORMAL PT INR Sodium 138 Potassium 3.9 Chloride 102 Carbon Dioxide 32 H Anion Gap 7.5 BUN 9 Creatinine 0.64 Estimated GFR > 60.0 Glucose 91 Lactic Acid Calcium 9.2 Total Bilirubin 0.40 AST 69 H ALT 40 H Alkaline Phosphatase 73 Troponin I < 0.012 Serum Total Protein 7.9 Albumin 3.5 Amylase Lipase Urine Color Urine Appearance Urine pH Ur Specific [place] Urine Protein Urine Ketones Urine Blood Urine Nitrite Urine Bilirubin Urine Urobilinogen Ur Leukocyte Esterase Urine WBC (Auto) Urine RBC (Auto) U Epithel Cells (Auto) Urine Bacteria (Auto) Urine Mucus (Auto) Urine Culture Reflexed Urine Glucose Influenza Type A Ag Influenza Type B Ag RSV (PCR) Slides for Path Review 01/25/20 01/25/20 01/24/20 05:06 02:08 23:34 WBC RBC Hgb Hct MCV MCH MCHC RDW Plt Count MPV Gran % Eos # (Auto) Absolute Lymphs (auto) Absolute Monos (auto) Lymphocytes % Monocytes % Eosinophils % Basophils % Absolute Granulocytes Segmented Neutrophils Lymphocytes (Manual) Monocytes (Manual) Eosinophils (Manual) Basophils # Platelet Estimate RBC Morphology PT INR Sodium Potassium Chloride Carbon Dioxide Anion Gap BUN Creatinine Estimated GFR Glucose Lactic Acid Calcium Total Bilirubin AST ALT Alkaline Phosphatase Troponin I < 0.012 < 0.012 Serum Total Protein Albumin Amylase Lipase Urine Color YELLOW Urine Appearance CLEAR Urine pH 7.0 Ur Specific [place] 1.009 Urine Protein NEGATIVE Urine Ketones SMALL Urine Blood NEGATIVE Urine Nitrite NEGATIVE Urine Bilirubin NEGATIVE Urine Urobilinogen NEGATIVE Ur Leukocyte Esterase NEGATIVE Urine WBC (Auto) 0-2 Urine RBC (Auto) 0-2 U Epithel Cells (Auto) NONE Urine Bacteria (Auto) NONE Urine Mucus (Auto) SLIGHT Urine Culture Reflexed NO Urine Glucose NEGATIVE Influenza Type A Ag Influenza Type B Ag RSV (PCR) Slides for Path Review 01/24/20 01/24/20 01/24/20 23:31 21:11 21:11 WBC RBC Hgb Hct MCV MCH MCHC RDW Plt Count MPV Gran % Eos # (Auto) Absolute Lymphs (auto) Absolute Monos (auto) Lymphocytes % Monocytes % Eosinophils % Basophils % Absolute Granulocytes Segmented Neutrophils Lymphocytes (Manual) Monocytes (Manual) Eosinophils (Manual) Basophils # Platelet Estimate RBC Morphology PT 12.7 H INR 1.12 Sodium Potassium Chloride Carbon Dioxide Anion Gap BUN Creatinine Estimated GFR Glucose Lactic Acid Calcium Total Bilirubin AST ALT Alkaline Phosphatase Troponin I < 0.012 < 0.012 Serum Total Protein Albumin Amylase Lipase Urine Color Urine Appearance Urine pH Ur Specific Robins Urine Protein Urine Ketones Urine Blood Urine Nitrite Urine Bilirubin Urine Urobilinogen Ur Leukocyte Esterase Urine WBC (Auto) Urine RBC (Auto) U Epithel Cells (Auto) Urine Bacteria (Auto) Urine Mucus (Auto) Urine Culture Reflexed Urine Glucose Influenza Type A Ag Influenza Type B Ag RSV (PCR) Slides for Path Review 01/24/20 01/24/20 01/24/20 21:11 21:11 20:54 WBC 2.4 L RBC 4.27 Hgb 12.1 Hct 38.7 MCV 90.6 MCH 28.3 MCHC 31.3 L RDW 14.0 Plt Count 124 L MPV 12.0 H Gran % 61.9 Eos # (Auto) 0.05 Absolute Lymphs (auto) 0.45 L Absolute Monos (auto) 0.40 Lymphocytes % 19.1 L Monocytes % 16.9 H Eosinophils % 2.1 Basophils % 0.0 Absolute Granulocytes 1.46 Segmented Neutrophils Lymphocytes (Manual) Monocytes (Manual) Eosinophils (Manual) Basophils # 0 Platelet Estimate RBC Morphology PT INR Sodium 138 Potassium 3.8 Chloride 96 L Carbon Dioxide 36 H Anion Gap 9.7 BUN 11 Creatinine 0.63 Estimated GFR > 60.0 Glucose 109 H Lactic Acid Calcium 10.0 Total Bilirubin 0.60 AST 75 H ALT 43 H Alkaline Phosphatase 90 Troponin I Serum Total Protein 9.3 H Albumin 4.2 Amylase 74 Lipase 266 Urine Color Urine Appearance Urine pH Ur Specific Rob[place] Urine Protein Urine Ketones Urine Blood Urine Nitrite Urine Bilirubin Urine Urobilinogen Ur Leukocyte Esterase Urine WBC (Auto) Urine RBC (Auto) U Epithel Cells (Auto) Urine Bacteria (Auto) Urine Mucus (Auto) Urine Culture Reflexed Urine Glucose Influenza Type A Ag NEGATIVE Influenza Type B Ag NEGATIVE RSV (PCR) NEGATIVE Slides for Path Review YES 01/24/20 20:46 WBC RBC Hgb Hct MCV MCH MCHC RDW Plt Count MPV Gran % Eos # (Auto) Absolute Lymphs (auto) Absolute Monos (auto) Lymphocytes % Monocytes % Eosinophils % Basophils % Absolute Granulocytes Segmented Neutrophils Lymphocytes (Manual) Monocytes (Manual) Eosinophils (Manual) Basophils # Platelet Estimate RBC Morphology PT INR Sodium Potassium Chloride Carbon Dioxide Anion Gap BUN Creatinine Estimated GFR Glucose Lactic Acid 1.0 Calcium Total Bilirubin AST ALT Alkaline Phosphatase Troponin I Serum Total Protein Albumin Amylase Lipase Urine Color Urine Appearance Urine pH Ur Specific Robins Urine Protein Urine Ketones Urine Blood Urine Nitrite Urine Bilirubin Urine Urobilinogen Ur Leukocyte Esterase Urine WBC (Auto) Urine RBC (Auto) U Epithel Cells (Auto) Urine Bacteria (Auto) Urine Mucus (Auto) Urine Culture Reflexed Urine Glucose Influenza Type A Ag Influenza Type B Ag RSV (PCR) Slides for Path Review Orders (Last 24 hours) Category Date Time Status Bedrest with BRP/BSC ROUTINE Activity 01/25/20 00:56 Active Up With Assistance ROUTINE Activity 01/25/20 00:56 Active Code Status Order ROUTINE Care 01/25/20 00:56 Active EKG-ER Only STAT Care 01/24/20 19:55 Completed Fall Protocol Q1H Care 01/25/20 00:56 Active IV Care Q6H Care 01/25/20 00:56 Active IV Insertion STAT Care 01/24/20 19:55 Completed NPO (ED) STAT Care 01/24/20 19:[address] in Observation ROUTINE Care 01/25/20 00:56 Active Brett Lewis, Apply ROUTINE Care 01/25/20 00:56 Active Telemetry q6h Care 01/25/20 00:56 Active Weight,Daily 0600 Care 01/25/20 00:56 Active Clear Liquid Diet 01/25/20 Breakfast Active ABDOMEN AND PELVIS W/0 CONTRAS [CT] Stat Exams 01/24/20 20:31 Completed AMYLASE Stat Lab 01/24/20 21:11 Completed CBC W DIFF AM.LAB Lab 01/25/20 05:06 Completed CBC W DIFF Stat Lab 01/24/20 21:11 Completed CMP AM.LAB Lab 01/25/20 05:06 Completed CMP Stat Lab 01/24/20 21:11 Completed LIPASE Stat Lab 01/24/20 21:11 Completed Lactic Acid Stat Lab 01/24/20 20:46 Completed Manual Differential NC Routine Lab 01/25/20 05:06 Completed PROTIME WITH INR Stat Lab 01/24/20 21:11 Completed Respiratory Panel Stat Lab 01/24/20 20:54 Completed TROPONIN Q3H Lab 01/24/20 21:11 Completed TROPONIN Q3H Lab 01/24/20 23:31 Completed TROPONIN Q3H Lab 01/25/20 02:08 Completed TROPONIN Q3H Lab 01/25/20 05:06 Completed TROPONIN Q3H Lab 01/25/20 08:05 Completed UA W/RFX UR CULTURE Stat Lab 01/24/20 23:34 Completed Acetaminophen 325 mg [Tylenol 325 mg] Med 01/25/20 00:56 Active 650 mg PO Q4H PRN PRN Famotidine 20 mg Vial [Pepcid 20 MG VIAL] Med 01/25/20 10:00 Active 20 mg IV Q12HT Hydromorphone 1 mg/1Ml Inj [Hydromorphone 1 mg/ml Med 01/24/20 19:55 Discontinued Ampule] 0.5 mg IV STAT ONE Hydromorphone 1 mg/1Ml Inj [Hydromorphone 1 mg/ml Med 01/24/20 20:20 Discontinued Ampule] 1 mg .ROUTE .STK-MED ONE Hydromorphone 2Mg Inj [Dilaudid 2 mg Injection] Med 01/25/20 00:56 Active 0.5 mg IV Q4H PRN PRN Insulin Lispro [Humalog] Med 01/25/20 00:56 Active See Dose Instructions SQ UD PRN Lidocaine/Prilocaine 5 gm [EMLA Cream 5 GM] Med 01/24/20 20:08 Discontinued 2.5 gm TP STAT ONE Lidocaine/Prilocaine 5 gm [EMLA Cream 5 GM] Med 01/24/20 20:09 Discontinued 5 gm TP .STK-MED ONE NaCl 0.9% 1000 ml [Sodium Chloride 0.9% 1000 ML] 1,000 Med 01/24/20 20:20 Discontinued ml .ROUTE UD NaCl 0.9% 1000 ml [Sodium Chloride 0.9% 1000 ML] 1,000 Med 01/25/20 00:56 Active ml IV 150 mls/hr NaCl 0.9% 1000 ml [Sodium Chloride 0.9% 1000 ML] 1,000 Med 01/24/20 19:55 Discontinued ml IV 999 mls/hr Ondansetron HCl 4 mg/2 ml [Zofran 4 MG/2 ML VIAL] Med 01/24/20 20:20 Discontinued 4 mg .ROUTE .STK-MED ONE Ondansetron HCl 4 mg/2 ml [Zofran 4 MG/2 ML VIAL] Med 01/25/20 00:56 Active 4 mg IV Q6H PRN PRN Ondansetron HCl 4 mg/2 ml [Zofran 4 MG/2 ML VIAL] Med 01/24/20 19:55 Discontinued 4 mg IV STAT ONE Promethazine HCl 25 mg Amp [Phenergan 25 MG INJ] Med 01/25/20 00:56 Active 25 mg IM Q6H PRN PRN Oxygen Nasal Cannula 3 lpm RT 01/25/20 00:56 Active Pulse Oximetry CONTINUOUS RT 01/25/20 00:56 Active Code(s): R11.2 - NAUSEA WITH VOMITING, UNSPECIFIED (2) Lupus (systemic lupus erythematosus) Current Visit: Yes Status: Acute Code(s): M32.9 - SYSTEMIC LUPUS ERYTHEMATOSUS, UNSPECIFIED
[2020-01-25] MEDS: Pepcid 20 MG VIAL IV SCH ×2 (09:54→21:32)
[2020-01-25] MEDS ORDERED: MEDICATION INTERVENTION PO SCH (12:30)
[2020-01-25] MEDS: Calcium 500MG W/Vit D Tablet PO SCH (14:43)
[2020-01-25] MEDS: NORVASC 5 MG PO SCH (14:43)
[2020-01-25] MEDS: Vitamin E 400 UNIT SOFTGEL PO SCH (14:44)
[2020-01-25] MEDS: Zocor 10MG PO SCH (14:45)
[2020-01-25] MEDS ORDERED: SILDENAFIL CITRATE 20 MG PO SCH (15:00)
[2020-01-25] MEDS ORDERED: MYCOPHENOLATE MOFETIL 500 MG PO SCH (22:00)
[2020-01-26] MEDS: DILAUDID 2 MG INJECTION IV PRN (04:05)
[2020-01-26] MEDS: Sodium Chloride 0.9% 1000 ML 1,000 ML IV SCH (04:06)
[2020-01-26 08:39] VITALS: BP 157/70; PULSE 50; O2SAT 100
[2020-01-26] MEDS ORDERED: NON-FORMULARY ITEM (Pravastatin Sodium [Pravastatin Sodium] 10 MG) PO SCH (10:00)
[2020-01-26] MEDS ORDERED: NON-FORMULARY ITEM (Calcium Carbonate [Calcium] 600 MG) PO SCH (10:00)
[2020-01-26] MEDS ORDERED: NON-FORMULARY ITEM (Amlodipine Besylate [Amlodipine Besylate] 2.5 MG) PO SCH (10:00)
[2020-01-26] MEDS ORDERED: NON-FORMULARY ITEM (Mecobalamin [B12 Active] 1,000 MCG) PO SCH (10:00)
[2020-01-26] MEDS ORDERED: NON-FORMULARY ITEM (Hydroxychloroquine Sulfate [Hydroxychloroquine Sulfate] 200 MG) PO SCH (10:00)
[2020-01-26] MEDS ORDERED: MILK THISTLE 175 MG PO SCH (10:00)
[2020-01-26] MEDS ORDERED: CHOLECALCIFEROL 50 MCG PO SCH (10:00)
[2020-01-26] MEDS: Calcium 500MG W/Vit D Tablet PO SCH (10:02)
[2020-01-26] MEDS: Zocor 10MG PO SCH (10:02)
[2020-01-26] MEDS: NORVASC 5 MG PO SCH (10:02)
[2020-01-26] MEDS: Pepcid 20 MG VIAL IV SCH (10:03)
[2020-01-26] MEDS: Vitamin E 400 UNIT SOFTGEL PO SCH (10:38)
== END 2020-01-26 11:00 | disposition home or self-care (01) ==
LOC: ED 19:25 → MED SURG 01-25 00:45
PROVIDERS: ADMIT General Practice; ATTEND General Practice
DX: R11.2 Nausea with vomiting, unspecified (principal); R53.1 Weakness; M32.9 Systemic lupus erythematosus, unspecified; M06.9 Rheumatoid arthritis, unspecified; Z85.41 Personal history of malignant neoplasm of cervix uteri; Z79.899 Other long term (current) drug therapy; Z85.72 Personal history of non-Hodgkin lymphomas; Z85.028 Personal history of other malignant neoplasm of stomach
CPT/HCPCS: 36000; 36415; 74176; 80053; 81001; 82150; 82962; 83605; 83690; 84484; 85025; 85610; 87631; 93005; 93268; 94762; 96360; 96374; 96375; 99285; G0378; J1170; J2405; A9270-GY

== ENCOUNTER 2020-08-21 08:11 | Emergency (ER) | payer MEDICARE ==
[2020-08-21] MEDS ORDERED: EMLA Cream 5 GM TP ONE (08:22)
[2020-08-21] MEDS ORDERED: Zofran 4 MG/2 ML VIAL IV ONE (08:40)
[2020-08-21] MEDS ORDERED: Sodium Chloride 0.9% 1000 ML 1,000 ML IV STA (08:40)
[2020-08-21] MEDS ORDERED: MORPHINE SULFATE 4 MG INJ IV ONE ×3 (08:40→21:40)
[2020-08-21] MEDS ORDERED: MORPHINE SULFATE 4 MG INJ ONE ×3 (08:53→21:42)
[2020-08-21] MEDS ORDERED: Zofran 4 MG/2 ML VIAL ONE (08:53)
[2020-08-21] MEDS ORDERED: Sodium Chloride 0.9% 1000 ML 1,000 ML ONE ×2 (08:53→10:57)
[2020-08-21 09:01] LABS: Absolute Neutrophil Ct (ANC) 5.68 (1.4-6.9); BASOPHIL % 0.1 % (0.0-0.4); Basophil (Absolute #) 0.01 (0-0.4); Eosinophil % 0.1 % (0.00-5.0); Eosinophil (Absolute #) 0.01 (0-0.5); Hematocrit 43.5 % (35-47); Hemoglobin 13.8 gm/dl (12.0-16.0); Lymphocyte (Absolute #) 0.57 (1.0-4.6); Lymphocytes % 8.1 % (24.0-44.0); Mean Cell Volume 87.2 fl (78-100); Mean Corpuscular Hemoglobin 27.7 pg (26-32); Mean Corpuscular Hgb Concent. 31.7 g/dl (32-36); Monocyte (Absolute #) 0.74 (0.0-1.3); Monocytes % 10.6 % (0.0-12.0); Neutrophil % 81.1 % (36.0-66.0); Platelet Count 139 K/mm3 (150-450); Red Blood Count 4.99 M/mm3 (4.1-5.4); Red Cell Distribution Width 16.3 % (11.5-14.0)
[2020-08-21 09:12] LABS: ALBUMIN 4.3 g/dL (3.5-5.0); ALKALINE PHOSPHATASE 104 U/L (38-126); BLOOD UREA NITROGEN 27 mg/dL (7-17); CHLORIDE 91 mmol/L (98-107); Calcium 9.9 mg/dL (8.4-10.2); Creatinine 1 0.74 mg/dL (0.52-1.04); EST GLOMERULAR FILTRATION RATE > 60.0 ML/MIN; Glucose 137 mg/dL (74-106); LIPASE 122 U/L (23-300); Potassium 3.6 mmol/L (3.5-5.1); SGOT/AST 132 U/L (14-36); SGPT/ALT 116 U/L (0-35); SODIUM 136 mmol/L (137-145); Total Protein 10.2 g/dL (6.3-8.2)
[2020-08-21 09:19] LABS: Carbon Dioxide 37 mmol/L (22-30)
[2020-08-21 09:21] LABS: ANION GAP 11.6 MEQ/L (5-15)
[2020-08-21 09:22] LABS: Appearance SLIGHTLY CLOUDY (CLEAR); Bacteria RARE /HPF (NEGATIVE); Bilirubin NEGATIVE (NEGATIVE); Blood NEGATIVE Ery/ul (0-5); Epithelial Cells FEW /HPF (FEW); Glucose NEGATIVE (NEGATIVE); Ketones NEGATIVE (NEGATIVE); Leukocyte Esterase TRACE (NEGATIVE); Mucus SLIGHT /HPF (NEGATIVE); Nitrite NEGATIVE (NEGATIVE); Protein,Urine Dip 100 (Negative); Specific Gravity 1.028 (1.005-1.025); Urobilinogen 2 mg/dL (0-1)
[2020-08-21 09:48] LABS: Slide Review 1 YES
--- NOTE | 2020-08-21 11:32 | ERPHSYRPT ---
- History of Present Illness Historian: patient, family Exam Limitations: no limitations Patient Subjective Stated Complaint: Abdominal pain Triage Nursing Assessment: Patient brought back to ED via EMS and transferred to bed with assist of 3. Patient A+O X 3. Patient's skin pale, warm and dry. Patient complains of abdominal pain since yesterday. Patient had recent j-tube placement on Sunday08/16/20 at [facility]. Patient's states patient has been getting Jevity at 60 cc suppose to run from [id number] but patient not tolerating it. Patient has been vomiting since yesterday. Abdomen hard and round with BS X 4. Patient reports gas also. Patient's states patient has not taken any of her meds since Sunday. Timing/Duration: yesterday, gradual onset, worse Activities at Onset: rest Quality: cramping, sharpness Abdominal Pain Onset Location: generalized abdomen Pain Radiation: no radiation Severity of Pain-Max: moderate Severity of Pain-Current: moderate Modifying Factors: Worsens With: vomiting Associated Symptoms: nausea, vomiting Previous symptoms: no prior history Hx Tetanus, Diphtheria Vaccination/Date Given: Yes Hx Influenza Vaccination/Date Given: No Hx Pneumococcal Vaccination/Date Given: No Immunizations Up to Date: Yes <SERGIO PAZ - Last Filed: 08/21/20 13:27> <LISA RAZO - Last Filed: 08/21/20 21:30> - History of Present Illness Time Seen by Provider: 08/21/20 08:25 Physician History: 65 years old female with history of rheumatoid arthritis, scleroderma, lupus arthritis recently has involvement of scleroderma in esophagus causing it difficult to eat or drink and was admitted initially at [facility] and later on at [facility] where jejunostomy tube was placed in 5 days ago presented with progressive or worsening generalized abdominal pain associated with nausea, occasional vomiting with some dry heaving and abdominal distention. It is progressively worsening. Denies any fever or chills. Patient was started on tube feed with Jevity but has been stopped it last night as she was not tolerating it very well. (SERGIO PAZ) Allergies/Adverse Reactions: No Known Drug Allergies Allergy (Verified 08/21/20 08:15) Home Medications: Hydroxychloroquine Sulfate 200 mg PO DAILY 01/24/20 [History] Sildenafil Citrate [Revatio] 20 mg PO TID 01/24/20 [History] Vitamin E 400 Units [Vitamin E 400 UNIT SOFTGEL] 4,000 unit PO DAILY 01/24/20 [History] Cholecalciferol (Vitamin D3) [Vitamin D3] 1,000 mcg PO DAILY 01/25/20 [History] Travel Risk - International Travel Have you traveled outside of the country in past 3 weeks: No - Coronavirus Screening Are you exhibiting any of the following symptoms?: No Close contact with a COVID-19 positive Pt in past 14-21 Days: No <SERGIO PAZ - Last Filed: 08/21/20 13:27> - Review of Systems Constitutional: No Symptoms Eyes: No Symptoms Ears, Nose, & Throat: No Symptoms Respiratory: No Symptoms Cardiac: No Symptoms Abdominal/Gastrointestinal: Abdominal Pain, Nausea, Vomiting Genitourinary Symptoms: No Symptoms Musculoskeletal: No Symptoms Skin: No Symptoms Neurological: No Symptoms Psychological: No Symptoms Endocrine: No Symptoms Hematologic/Lymphatic: No Symptoms Immunological/Allergic: Pollen Allergy <SERGIO PAZ - Last Filed: 08/21/20 13:27> - Past Medical History Pertinent Past Medical History: Yes Neurological History: No Pertinent History ENT History: No Pertinent History Cardiac History: Other Respiratory History: No Pertinent History Endocrine Medical History: No Pertinent History, Liver Disease Musculoskeletal History: Rheumatoid Arthritis GI Medical History: Other History: No Pertinent History Psycho-Social History: No Pertinent History Female Reproductive Disorders: Uterine Cancer Other Medical History: lupus, lupus cerebritis, reynauds, scleroderma, pulm htn, liver disease with cirrhosis, hep c- treated. pt states blockages in esophagus- states she is going on february 17 to have esophatgus stretched again. hx nonhodgkins lymphoma, ewings sarcoma, cervical ca, stomach ca per pt - Past Surgical History Past Surgical History: Yes Neuro Surgical History: No Pertinent History Cardiac: No Pertinent History Respiratory: No Pertinent History Gastrointestinal: Cholecystectomy Genitourinary: No Pertinent History Musculoskeletal: Joint Replacement Female Surgical History: Hysterectomy Other Surgical History: rt knee replacement, finger amp rt hand x2, port placement - Social History Smoking Status: Never smoker Exposure to second hand smoke: No Drug Use: none Patient Lives Alone: No <SERGIO PAZ - Last Filed: 08/21/20 13:27> - Physical Exam General Appearance: no apparent distress, cachetic Eye Exam: PERRL/EOMI, eyes nml inspection Ears, Nose, Throat Exam: normal ENT inspection Neck Exam: normal inspection Respiratory Exam: normal breath sounds, lungs clear Cardiovascular Exam: normal heart sounds, tachycardia Gastrointestinal/Abdomen Exam: soft, tenderness (Generalized), distention, guarding, other (Hypoactive bowel sounds in all 4 quadrants), No normal bowel sounds Back Exam: normal inspection Extremity Exam: normal inspection, normal range of motion Neurologic Exam: alert, oriented x 3, cooperative Skin Exam: normal color SpO2 Interpretation: normal SpO2: 100 O2 Delivery: Room Air <SERGIO PAZ - Last Filed: 08/21/20 13:27> - Nursing Vital Signs Nursing Vital Signs: Initial Vital Signs Pulse Rate 106 H 08/21/20 08:18 Respiratory Rate 17 08/21/20 08:18 Blood Pressure 148/93 08/21/20 08:18 O2 Sat by Pulse Oximetry 100 08/21/20 08:18 Pain Scale Pain Intensity 3 - Course Nursing assessment & vital signs reviewed: Yes <LISA RAZO - Last Filed: 08/21/20 21:30> Ordered Tests: Active Orders 24 hr Category Date Time Status IV Insertion STAT Care 08/21/20 08:40 Active NG to Suction (Insertion) ROUTINE Care 08/21/20 14:00 Active ABDOMEN AND PELVIS W CONTRAST [CT] Stat Exams 08/21/20 08:41 Completed CBC W DIFF Stat Lab 08/21/20 08:40 Completed CMP Stat Lab 08/21/20 08:40 Completed CULTURE,URINE Stat Lab 08/21/20 09:10 Received LIPASE Stat Lab 08/21/20 08:40 Completed UA W/RFX UR CULTURE Stat Lab 08/21/20 09:10 Completed Medication Summary Generic Name Dose Route Start Last Admin Trade Name Freq PRN Reason Stop Dose Admin Sodium Chloride 1,000 mls @ 75 mls/hr 08/21/20 13:15 08/21/20 13:14 Sodium Chloride 0.9% 1000 Ml IV 09/20/20 13:14 75 mls/hr .[id number] SHEILA Administration Discontinued Medications Generic Name Dose Route Start Last Admin Trade Name Freq PRN Reason Stop Dose Admin Sodium Chloride 1,000 mls @ 999 mls/hr 08/21/20 08:40 08/21/20 11:25 Sodium Chloride 0.9% 1000 Ml IV 08/21/20 09:40 Infused .Q1H1M STA Infusion Sodium Chloride Confirm 08/21/20 08:53 Sodium Chloride 0.9% 1000 Ml Administered 08/21/20 08:54 Dose 1,000 mls @ ud .ROUTE .STK-MED ONE Sodium Chloride Confirm 08/21/20 10:57 Sodium Chloride 0.9% 1000 Ml Administered 08/21/20 10:58 Dose 1,000 mls @ ud .ROUTE .STK-MED ONE Lidocaine/Prilocaine 2.5 gm 08/21/20 08:22 08/21/20 08:29 Emla Cream 5 Gm TP 08/21/20 08:23 2.5 gm STAT ONE Administration Morphine Sulfate 4 mg 08/21/20 08:40 08/21/20 08:59 Morphine Sulfate 4 Mg Inj IV 08/21/20 08:41 4 mg STAT ONE Administration Morphine Sulfate Confirm 08/21/20 08:53 Morphine Sulfate 4 Mg Inj Administered 08/21/20 08:54 Dose 4 mg .ROUTE .STK-MED ONE Morphine Sulfate 4 mg 08/21/20 13:01 08/21/20 13:02 Morphine Sulfate 4 Mg Inj IV 08/21/20 13:02 4 mg STAT ONE Administration Morphine Sulfate Confirm 08/21/20 13:01 Morphine Sulfate 4 Mg Inj Administered 08/21/20 13:02 Dose 4 mg .ROUTE .STK-MED ONE Ondansetron HCl 4 mg 08/21/20 08:40 08/21/20 08:58 Zofran 4 Mg/2 Ml Vial IV 08/21/20 08:41 4 mg STAT ONE Administration Ondansetron HCl Confirm 08/21/20 08:53 Zofran 4 Mg/2 Ml Vial Administered 08/21/20 08:54 Dose 4 mg .ROUTE .STK-MED ONE Lab/Rad Data: Laboratory Result Diagrams 08/21/20 08:40 08/21/20 08:40 Laboratory Results 08/21/20 08/21/20 08/21/20 Range/Units 09:10 08:40 08:40 WBC 7.0 (4.0-10.5) K/mm3 RBC 4.99 (4.1-5.4) M/mm3 Hgb 13.8 (12.0-16.0) gm/dl Hct 43.5 (35-47) % MCV 87.2 (78-100) fl MCH 27.7 (26-32) pg MCHC 31.7 L (32-36) g/dl RDW 16.3 H (11.5-14.0) % Plt Count 139 L (150-450) K/mm3 MPV 12.0 H (7.5-11.0) fl Gran % 81.1 H (36.0-66.0) % Eos # (Auto) 0.01 (0-0.5) Absolute Lymphs (auto) 0.57 L (1.0-4.6) Absolute Monos (auto) 0.74 (0.0-1.3) Lymphocytes % 8.1 L (24.0-44.0) % Monocytes % 10.6 (0.0-12.0) % Eosinophils % 0.1 (0.00-5.0) % Basophils % 0.1 (0.0-0.4) % Absolute Granulocytes 5.68 (1.4-6.9) Basophils # 0.01 (0-0.4) Sodium 136 L (137-145) mmol/L Potassium 3.6 (3.5-5.1) mmol/L Chloride 91 L (98-107) mmol/L Carbon Dioxide 37 H (22-30) mmol/L Anion Gap 11.6 (5-15) MEQ/L BUN 27 H (7-17) mg/dL Creatinine 0.74 (0.52-1.04) mg/dL Estimated GFR > 60.0 ML/MIN Glucose 137 H (74-106) mg/dL Calcium 9.9 (8.4-10.2) mg/dL Total Bilirubin 0.90 (0.2-1.3) mg/dL AST 132 H (14-36) U/L ALT 116 H (0-35) U/L Alkaline Phosphatase 104 (38-126) U/L Serum Total Protein 10.2 H (6.3-8.2) g/dL Albumin 4.3 (3.5-5.0) g/dL Lipase 122 (23-300) U/L Urine Color LESLYE (YELLOW) Urine Appearance SLIGHTLY CLOUDY (CLEAR) Urine pH 7.0 (5-6) Ur Specific [place] 1.028 (1.005-1.025) Urine Protein 100 (Negative) Urine Ketones NEGATIVE (NEGATIVE) Urine Blood NEGATIVE (0-5) Bj/ul Urine Nitrite NEGATIVE (NEGATIVE) Urine Bilirubin NEGATIVE (NEGATIVE) Urine Urobilinogen 2 (0-1) mg/dL Ur Leukocyte Esterase TRACE (NEGATIVE) Urine WBC (Auto) 6-10 (0-5) /HPF Urine RBC (Auto) 6-10 (0-2) /HPF U Epithel Cells (Auto) FEW (FEW) /HPF Urine Bacteria (Auto) RARE (NEGATIVE) /HPF Urine Mucus (Auto) SLIGHT (NEGATIVE) /HPF Urine Culture Reflexed YES (NO) Urine Glucose NEGATIVE (NEGATIVE) mg/dL Slides for Path Review YES - Progress Progress: pain not gone completely, re-examined Discussed with : Krisit, Other Counseled pt/family regarding: lab results, diagnosis, rad results <SERGIO PAZ - Last Filed: 08/21/20 13:27> - Progress Counseled pt/family regarding: need for follow-up <LISA RAZO - Last Filed: 08/21/20 21:30> - Progress Progress Note: 08/21/20 11:33 65 years old is evaluated for abdominal pain with distention and nausea vomiting after recent jejunostomy tube placement. She is given a fluid bolus along with morphine and Zofran, on reevaluation feeling better but pain is not completely improved. She has a normal white count, I have obtained CT with contrast which showed distended stomach duodenum and proximal jejunum with air-fluid levels compatible with mechanical obstruction. It is right at the point of entry of percutaneous jejunostomy tube. Discussed with Dr. Anguiano, recommended transfer to primary facility where the surgery was done. Plan discussed with patient and family, understand and agree with it. 08/21/20 13:[address] Wilson at [facility], reviewed patient presentation, lab work, CT findings, recommended NG intubation and patient is accepted for transfer. (SERGIO PAZ) 08/21/20 18:55 the pt is awaiting transfer but is accepted at [facility] for her SBO and was received at change of shift from Dr. Paz after intro to pt and discussion of case and pending transfer- plan to continue IVF and monitoring- the transport service is considerably backed up and cannot perform this until after 8-9 pm tonight which is resulting in the long delay as already observed. 08/21/20 21:29 pt remained stable without change until transport arrived and proceeded with loading without event. (LISA RAZO) - Departure Departure Disposition: Transfer Critical Care Time: Yes Critical Care Time(excluding separately billable procedures): Critical 30-74 mins <SERGIO PAZ - Last Filed: 08/21/20 13:27> <LISA RAZO - Last Filed: 08/21/20 21:30> - Departure Clinical Impression: Small bowel obstruction Condition: Stable Referrals: NOY PATEL MD [Primary Care Provider] -
[2020-08-21] MEDS ORDERED: Sodium Chloride 0.9% 1000 ML 1,000 ML IV SCH (13:15)
--- NOTE | 2020-08-21 17:08 | XRAY ---
Indication: Abdomen pain, nausea, and vomiting. Recent feeding tube placement. Multiple contiguous axial images obtained through the abdomen and pelvis using 80 cc of Isovue-370 contrast only. Comparison: May 17, 2020. Lung bases again demonstrates minimal dependent atelectasis without infiltrate or effusion. Heart is not enlarged. New anterior left mid abdomen percutaneous jejunostomy feeding tube. Stomach and small bowel loops are now abnormally fluid distended up to 5 cm in diameter with fluid leveling. Transition point identified at percutaneous jejunostomy site. More distal small bowel loops and colon appear were normal in caliber with normal bowel gas consistent with partial small bowel obstruction. Tiny pelvic free fluid. No walled off fluid collection or free air. Stable cirrhotic liver, cholecystectomy, hysterectomy, and 14.8 cm splenomegaly with splenic calcified granulomas. Remaining liver, pancreas, spleen, adrenal glands, kidneys, ureters, and bladder are unremarkable. Stable moderate aortoiliac calcifications. No AAA or pathologic retroperitoneal lymphadenopathy. Osseous structures remain intact again with osteopenia and mild degenerative changes throughout the spine. Impression: 1. New finding distal small bowel junction. Transition point identified at percutaneous jejunostomy insertion. No perforation. 2. Stable cirrhotic liver, splenomegaly, splenic calcified granulomas, arteriosclerotic disease, and chronic bony findings. Comment: Preliminary interpretation was made by [facility]. No critical discrepancy.
[2020-08-21 19:06] VITALS: O2SAT 100
[2020-08-21 21:51] VITALS: BP 150/94; PULSE 79
== END 2020-08-21 21:50 | disposition short-term general hospital (02) ==
LOC: ED 08:11
DX: K56.609 Unspecified intestinal obstruction, unspecified as to partial versus complete obstruction (principal); R10.9 Unspecified abdominal pain; R11.2 Nausea with vomiting, unspecified; Z79.899 Other long term (current) drug therapy
CPT/HCPCS: 36000; 36415; 74177; 80053; 81001; 83690; 85025; 87077; 87086; 87186; 96360; 96374; 96375; 96376; 99285; 99291; J2270; J2405; A9270-GY

== ENCOUNTER 2020-12-07 11:13 | Emergency (ER) | payer MEDICARE ==
--- NOTE | 2020-12-07 12:19 | XRAY ---
Indication: Feeding tube dysfunction. Comparison: None KUB nonacute and nonobstructed with mild diffuse scattered colonic fecal debris throughout. PEG tube in situ with tip projecting over the distal duodenum near the duodenal jejunal junction. Incidental multiple splenic calcified granulomas and cholecystectomy clips. Solid organs unremarkable. Osseous structures demonstrates osteopenia and mild/moderate multilevel degenerative spondylosis. Impression: Mild fecal stasis with PEG tube in situ.
--- NOTE | 2020-12-07 14:07 | XRAY ---
Indication: Feeding tube dysfunction. Patient states she has a triple-lumen feeding tube with known nonfunctioning/occluded small bowel lumen of the catheter. Approximately 40 cc of diluted Gastrografin was injected through the gastric lumen of the feeding tube without resistance. Single KUB demonstrates contrast collecting within the gastric lumen. There is no abnormal extravasation/leak. Impression: Triple-lumen gastrostomy feeding tube in situ with the gastric lumen of the catheter patent.
--- NOTE | 2020-12-07 14:21 | ERPHSYRPT ---
- History of Present Illness Time Seen by Provider: 12/07/20 12:00 Patient Subjective Stated Complaint: pt has g tube she states has been dislodged today, she states last night she caught it on something last night while getting cleaned up, Triage Nursing Assessment: pt alert, arrived per wc. resp easy, skin w/d/p. she has g tube abd, no redness or drainage to site, she states she has her tube feeding today Physician History: Patient is a 65-year-old female with longstanding severe scleroderma with a dislodgment of a JG feeding tube. Which was placed on August of this year and she patient has been lost to follow-up she is a hospice patient. Allergies/Adverse Reactions: No Known Drug Allergies Allergy (Verified 12/07/20 11:32) Home Medications: Hydroxychloroquine Sulfate 200 mg PO DAILY 01/24/20 [History] Sildenafil Citrate [Revatio] 20 mg PO TID 01/24/20 [History] Vitamin E 400 Units [Vitamin E 400 UNIT SOFTGEL] 4,000 unit PO DAILY 01/24/20 [History] Cholecalciferol (Vitamin D3) [Vitamin D3] 1,000 mcg PO DAILY 01/25/20 [History] Hx Tetanus, Diphtheria Vaccination/Date Given: Yes Hx Influenza Vaccination/Date Given: Yes Hx Pneumococcal Vaccination/Date Given: Yes Travel Risk - International Travel Have you traveled outside of the country in past 3 weeks: No - Coronavirus Screening Are you exhibiting any of the following symptoms?: No Close contact with a COVID-19 positive Pt in past 14-21 Days: No - Review of Systems Constitutional: No Fever, No Chills Eyes: No Symptoms Ears, Nose, & Throat: No Symptoms Respiratory: No Cough, No Dyspnea Cardiac: No Chest Pain, No Edema, No Syncope Abdominal/Gastrointestinal: No Abdominal Pain, No Nausea, No Vomiting, No Diarrhea Genitourinary Symptoms: No Dysuria Musculoskeletal: No Back Pain, No Neck Pain Skin: No Rash Neurological: No Dizziness, No Focal Weakness, No Sensory Changes Psychological: No Symptoms Endocrine: No Symptoms All Other Systems: Reviewed and Negative - Past Medical History Pertinent Past Medical History: Yes Neurological History: No Pertinent History ENT History: No Pertinent History Cardiac History: Other Respiratory History: No Pertinent History Endocrine Medical History: No Pertinent History, Liver Disease Musculoskeletal History: Rheumatoid Arthritis GI Medical History: Other History: No Pertinent History Psycho-Social History: No Pertinent History Female Reproductive Disorders: Uterine Cancer Other Medical History: lupus, lupus cerebritis, reynauds, scleroderma, pulm htn, liver disease with cirrhosis, hep c- treated. pt states blockages in esophagus- states she is going on february 17 to have esophatgus stretched again. hx nonhodgkins lymphoma, ewings sarcoma, cervical ca, stomach ca per pt - Past Surgical History Past Surgical History: Yes Neuro Surgical History: No Pertinent History Cardiac: No Pertinent History Respiratory: No Pertinent History Gastrointestinal: Cholecystectomy Genitourinary: No Pertinent History Musculoskeletal: Joint Replacement Female Surgical History: Hysterectomy Other Surgical History: rt knee replacement, finger amp rt hand x2, port placement - Social History Smoking Status: Former smoker Exposure to second hand smoke: No Drug Use: none Patient Lives Alone: No - Female History Hx Last Menstrual Period: post Hx Now: No - Nursing Vital Signs Nursing Vital Signs: Pain Scale Pain Intensity 10 - Physical Exam General Appearance: mild distress Eye Exam: PERRL/EOMI, eyes nml inspection Ears, Nose, Throat Exam: normal ENT inspection, TMs normal, pharynx normal, moist mucous membranes Neck Exam: normal inspection Respiratory Exam: normal breath sounds, lungs clear, No respiratory distress Cardiovascular Exam: regular rate/rhythm, normal heart sounds, normal peripheral pulses Gastrointestinal/Abdomen Exam: soft, normal bowel sounds, other (Tube) Back Exam: normal inspection Extremity Exam: normal inspection Neurologic Exam: alert, oriented x 3 Skin Exam: normal color, warm, dry, No rash Lymphatic Exam: No adenopathy SpO2 Interpretation: normal O2 Delivery: Room Air - Course Nursing assessment & vital signs reviewed: Yes - Radiology Exams Abdomen X-ray Interpretation: Interpreted by me Ordered Tests: Active Orders 24 hr Category Date Time Status KUB Routine Exams 12/07/20 13:43 Completed KUB Stat Exams 12/07/20 12:03 Completed - Progress Progress: unchanged Progress Note: 12/07/20 14:23 Yesterday the patient will go to tomorrow as an outpatient for interventional radiology to replace her JG tube. At the 10:00. A.m. Will see patient in: other (We followed up at [facility] with) - Departure Departure Disposition: Home (interventional radiology as an outpatient) Clinical Impression: Feeding tube dysfunction Condition: Stable Critical Care Time: No Referrals: NOY PATEL MD [Primary Care Provider] -
[2020-12-07 14:42] VITALS: BP 130/70; PULSE 74; O2SAT 96
== END 2020-12-07 14:43 | disposition home or self-care (01) ==
LOC: ED 11:13
DX: K94.23 Gastrostomy malfunction (principal)
CPT/HCPCS: 74018; 99284